=== PATIENT | female | born 1960 | race African-American/Black ===

== ENCOUNTER 2022-08-01 11:32 | Inpatient (IN) | payer BC, MEDICAID ==
[~2022-08-01] VITALS: Ht 144.8 cm; Wt 89.1 kg
[~2022-08-01 11:32] MED LIST: FERR325T50 PO
[2022-08-01 13:10] LABS: Eosinophils # (auto) 0 10 ^3/uL (0-0.8); Mean Corpuscular Hemoglobin 29.5 pg (28.0-32.0); Mean Corpuscular Hgb Conc. 30.9 g/dL (32.0-36.0); Monocytes # (auto) 0.4 10 ^3/uL (0-1.3)
[2022-08-01 13:11] LABS: Basophils # (auto) 0 10 ^3/uL (0-0.2); Basophils % (auto) 0.1 % (0.0-2.0); Hematocrit 51.7 % (36.0-46.0); Lymphocytes # (auto) 0.6 10 ^3/uL (0.4-5.4); Lymphocytes % (auto) 6.7 % (10.0-50.0); Mean Corpuscular Volume 95.5 fL (80.0-100.0); Monocytes % (auto) 5.4 % (0.0-12.0); Neutrophils # (auto) 7.3 10 ^3/uL (1.6-8.6); Neutrophils % (auto) 87.8 % (37.0-80.0); Nucleated Red Blood Cells % 0.1 %; Red Blood Cells 5.41 10^6/uL (4.0-5.20); Red Cell Distribution Width 13.6 % (11.8-14.3); White Blood Cell 8.3 10^3/uL (4.4-10.8)
[2022-08-01] MEDS ORDERED: SODIUM CHLORIDE 0.9% 1,000 ML IV ONE (13:15)
[2022-08-01] MEDS ORDERED: InsuLIN REG 1unit/0.01ml Soln (100units/ml) IV ONE (13:15)
[2022-08-01 13:20] LABS: Albumin 3.5 g/dL (3.4-5.0); Calcium 9.7 mg/dL (8.5-10.1)
[2022-08-01 13:29] LABS: BUN/Creatinine Ratio 18.6 (10.0-20.0); Bilirubin, Total 0.6 mg/dL (0.2-1.0); Potassium 5.4 mmol/L (3.5-5.1); Total Protein 8.3 g/dL (6.4-8.2)
[2022-08-01] MEDS: InsuLIN R (HUMAN) 100 UNITS in SODIUM CHL 0.9% 99 ML IV SCH ×2 (14:15→18:18)
[2022-08-01] MEDS ORDERED: DEXTROSE (50%) 50ML SYRG IV PRN (14:15)
[2022-08-01] MEDS ORDERED: INSULIN LANTUS (GLARGINE) 1 /0.01ml (100units/ml) SC ONE (14:15)
[2022-08-01] MEDS ORDERED: ACETAMINOPHEN 325 MG TAB PO PRN (14:45)
[2022-08-01] MEDS ORDERED: NITROGLYCERIN 0.4 MG SL TAB SL PRN (14:45)
[2022-08-01] MEDS ORDERED: MORPHINE SULFATE INJ 2 MG/ml SYRG IV PRN (14:45)
[2022-08-01] MEDS: SODIUM CHLORIDE 0.9% 1,000 ML IV SCH (14:45)
[2022-08-01] MEDS: ACCU-CHEK COMFORT CURVE STRIP VI SCH ×6 (15:00→22:30)
[2022-08-01 15:23] LABS: Cholesterol 211 mg/dL (< 200); Triglycerides 168 mg/dL (< 150)
[2022-08-01 15:25] LABS: HDL Cholesterol 59 mg/dL (40-59); LDL Cholesterol 122 mg/dL (< 100)
[2022-08-01 15:54] LABS: Urine Bacteria NONE SEEN /hpf (None Seen); Urine Blood Negative /uL (Negative); Urine Mucus FEW (None Seen); Urine Specific Gravity 1.024 (1.001-1.035); Urine WBC 1 /hpf (0 - 5)
[2022-08-01] MEDS: FERROUS SULFATE 325mg EC TAB PO SCH (22:00)
[2022-08-02 00:55] LABS: Calcium 9.3 mg/dL (8.5-10.1); Potassium 3.7 mmol/L (3.5-5.1)
[2022-08-02 00:58] LABS: BUN/Creatinine Ratio 22.1 (10.0-20.0); Bilirubin, Total 0.5 mg/dL (0.2-1.0); Total Protein 7.5 g/dL (6.4-8.2)
[2022-08-02] MEDS: ACCU-CHEK COMFORT CURVE STRIP VI SCH ×14 (01:30→22:08)
[2022-08-02] MEDS: SODIUM CHLORIDE 0.9% 1,000 ML IV SCH ×2 (04:23→19:47)
[2022-08-02 05:12] LABS: Basophils # (auto) 0 10 ^3/uL (0-0.2); Basophils % (auto) 0.1 % (0.0-2.0); Eosinophils # (auto) 0 10 ^3/uL (0-0.8); Eosinophils % (auto) 0.2 % (0.0-7.0); Hematocrit 44.1 % (36.0-46.0); Hemoglobin 14.6 g/dL (12.2-16.2); Lymphocytes # (auto) 0.7 10 ^3/uL (0.4-5.4); Lymphocytes % (auto) 8.4 % (10.0-50.0); Mean Corpuscular Hemoglobin 29.7 pg (28.0-32.0); Mean Corpuscular Volume 89.9 fL (80.0-100.0); Monocytes # (auto) 0.8 10 ^3/uL (0-1.3); Monocytes % (auto) 10.1 % (0.0-12.0); Neutrophils # (auto) 6.6 10 ^3/uL (1.6-8.6); Neutrophils % (auto) 81.2 % (37.0-80.0); Nucleated Red Blood Cells % 0.1 %; Red Blood Cells 4.91 10^6/uL (4.0-5.20); White Blood Cell 8.1 10^3/uL (4.4-10.8)
[2022-08-02 05:30] LABS: Chloride 118 mmol/L (98-107); Potassium 3.5 mmol/L (3.5-5.1); Sodium 145 mmol/L (136-145)
[2022-08-02 05:35] LABS: Alanine Aminotransferase 26 U/L (13-56); Albumin 2.7 g/dL (3.4-5.0); Anion Gap 7 (5-15); Aspartate Aminotransferase 9 U/L (15-37); BUN/Creatinine Ratio 23.8 (10.0-20.0); Blood Urea Nitrogen 25 mg/dL (7-18); Carbon Dioxide 20 mmol/L (21-32); GFR African American 68 mL/min; GFR Non-African American 56 mL/min; Glucose 274 mg/dL (74-106)
[2022-08-02 05:38] LABS: Alkaline Phosphatase 136 U/L (45-117); Bilirubin, Total 0.4 mg/dL (0.2-1.0); Total Protein 7.4 g/dL (6.4-8.2)
[2022-08-02] MEDS: FERROUS SULFATE 325mg EC TAB PO SCH ×2 (10:25→22:08)
[2022-08-02] MEDS: INSULIN LANTUS (GLARGINE) 1 /0.01ml (100units/ml) SC SCH (10:25)
[2022-08-02] MEDS: ENOXAPARIN SOD 40 MG/0.4 ML SYRINGE SC SCH (10:26)
[2022-08-02 12:59] LABS: Albumin 2.6 g/dL (3.4-5.0); Calcium 8.9 mg/dL (8.5-10.1); Potassium 3.6 mmol/L (3.5-5.1)
[2022-08-02 13:04] LABS: BUN/Creatinine Ratio 20.4 (10.0-20.0); Bilirubin, Total 0.5 mg/dL (0.2-1.0); Total Protein 7.1 g/dL (6.4-8.2)
[2022-08-02] MEDS: InsuLIN R (HUMAN) 100 UNITS in SODIUM CHL 0.9% 99 ML IV SCH (14:17)
[2022-08-02] MEDS ORDERED: DEXTROSE (50%) 50ML SYRG IV PRN (18:45)
[2022-08-02 18:58] LABS: Albumin 2.5 g/dL (3.4-5.0); Calcium 8.9 mg/dL (8.5-10.1); Potassium 4.4 mmol/L (3.5-5.1)
[2022-08-02 19:03] LABS: BUN/Creatinine Ratio 20.2 (10.0-20.0); Bilirubin, Total 0.6 mg/dL (0.2-1.0); Total Protein 6.8 g/dL (6.4-8.2)
[2022-08-02] MEDS: InsuLIN REG 1unit/0.01ml Soln (100units/ml) SC SCH (22:12)
[2022-08-03 00:49] LABS: Albumin 2.5 g/dL (3.4-5.0); BUN/Creatinine Ratio 23.7 (10.0-20.0); Calcium 8.6 mg/dL (8.5-10.1); Potassium 3.4 mmol/L (3.5-5.1)
[2022-08-03 00:53] LABS: Bilirubin, Total 0.5 mg/dL (0.2-1.0); Total Protein 6.7 g/dL (6.4-8.2)
[2022-08-03 05:00] VITALS: BP 131/72
[2022-08-03 05:56] LABS: Potassium 3.7 mmol/L (3.5-5.1)
[2022-08-03 06:07] LABS: BUN/Creatinine Ratio 25.8 (10.0-20.0); Calcium 8.9 mg/dL (8.5-10.1); Phosphorus 2.7 mg/dL (2.5-4.90); Uric Acid 8.4 mg/dL (2.6-6.0)
[2022-08-03] MEDS: ACCU-CHEK COMFORT CURVE STRIP VI SCH ×4 (06:31→21:42)
[2022-08-03] MEDS: InsuLIN REG 1unit/0.01ml Soln (100units/ml) SC SCH ×4 (06:32→21:41)
[2022-08-03] MEDS: SODIUM CHLORIDE 0.9% 1,000 ML IV SCH ×2 (06:35→20:05)
[2022-08-03 08:00] VITALS: BP 138/82
[2022-08-03 08:44] VITALS: BP 138/82
[2022-08-03] MEDS: INSULIN LANTUS (GLARGINE) 1 /0.01ml (100units/ml) SC SCH (08:50)
[2022-08-03] MEDS: FERROUS SULFATE 325mg EC TAB PO SCH ×2 (08:53→21:37)
[2022-08-03] MEDS: ENOXAPARIN SOD 40 MG/0.4 ML SYRINGE SC SCH (08:53)
[2022-08-03 11:53] LABS: Urine Bacteria FEW /hpf (None Seen); Urine Blood Negative /uL (Negative); Urine Specific Gravity 1.022 (1.001-1.035); Urine WBC 7 /hpf (0 - 5)
[2022-08-03 12:28] LABS: Protein, Urine 32.6 mg/dL (0.0-11.9)
[2022-08-03 13:00] VITALS: BP 112/71
[2022-08-03 13:29] LABS: Albumin 2.5 g/dL (3.4-5.0); Calcium 8.9 mg/dL (8.5-10.1); Potassium 3.4 mmol/L (3.5-5.1)
[2022-08-03 13:34] LABS: BUN/Creatinine Ratio 19.2 (10.0-20.0); Bilirubin, Total 0.5 mg/dL (0.2-1.0); Total Protein 6.6 g/dL (6.4-8.2)
[2022-08-03 17:01] VITALS: BP 110/55
[2022-08-03] MEDS: metFORMIN HYDROCHLORIDE 850 MG TAB PO SCH (17:41)
[2022-08-03 18:38] LABS: Albumin 2.3 g/dL (3.4-5.0); Calcium 8.7 mg/dL (8.5-10.1); Potassium 3.3 mmol/L (3.5-5.1)
[2022-08-03 18:44] LABS: BUN/Creatinine Ratio 17.9 (10.0-20.0); Bilirubin, Total 0.4 mg/dL (0.2-1.0); Total Protein 6.4 g/dL (6.4-8.2)
[2022-08-03 22:00] VITALS: BP 117/71
[2022-08-04 05:00] VITALS: BP 148/58
[2022-08-04] MEDS: InsuLIN REG 1unit/0.01ml Soln (100units/ml) SC SCH ×4 (06:20→21:32)
[2022-08-04] MEDS: ACCU-CHEK COMFORT CURVE STRIP VI SCH ×4 (06:20→21:24)
[2022-08-04] MEDS: GLIMEPIRIDE 2 MG TAB PO SCH (06:53)
[2022-08-04 09:00] VITALS: BP 110/58
[2022-08-04 09:04] LABS: Basophils # (auto) 0 10 ^3/uL (0-0.2); Basophils % (auto) 0.2 % (0.0-2.0); Eosinophils # (auto) 0 10 ^3/uL (0-0.8); Eosinophils % (auto) 1.1 % (0.0-7.0); Hemoglobin 14.5 g/dL (12.2-16.2); Lymphocytes % (auto) 24.2 % (10.0-50.0); Mean Corpuscular Hemoglobin 29.3 pg (28.0-32.0); Mean Corpuscular Hgb Conc. 32.3 g/dL (32.0-36.0); Mean Corpuscular Volume 90.6 fL (80.0-100.0); Monocytes # (auto) 0.5 10 ^3/uL (0-1.3); Monocytes % (auto) 11.4 % (0.0-12.0); Neutrophils # (auto) 2.6 10 ^3/uL (1.6-8.6); Neutrophils % (auto) 63.1 % (37.0-80.0); Nucleated Red Blood Cells % 0.3 %; Red Blood Cells 4.97 10^6/uL (4.0-5.20); White Blood Cell 4.1 10^3/uL (4.4-10.8)
[2022-08-04 09:18] LABS: Calcium 8.8 mg/dL (8.5-10.1); Potassium 3.2 mmol/L (3.5-5.1)
[2022-08-04 09:20] LABS: BUN/Creatinine Ratio 16.7 (10.0-20.0)
[2022-08-04] MEDS: metFORMIN HYDROCHLORIDE 850 MG TAB PO SCH ×2 (09:21→18:22)
[2022-08-04] MEDS: FERROUS SULFATE 325mg EC TAB PO SCH ×2 (09:21→21:31)
[2022-08-04] MEDS: INSULIN LANTUS (GLARGINE) 1 /0.01ml (100units/ml) SC SCH (09:22)
[2022-08-04] MEDS: SODIUM CHLORIDE 0.9% 1,000 ML IV SCH ×2 (09:22→22:45)
[2022-08-04] MEDS: ENOXAPARIN SOD 40 MG/0.4 ML SYRINGE SC SCH (09:22)
[2022-08-04 12:44] VITALS: BP 129/55
[2022-08-04 17:00] VITALS: BP 113/48
[2022-08-04 21:57] VITALS: BP 129/69
[2022-08-05 04:33] VITALS: BP 115/80
[2022-08-05] MEDS: GLIMEPIRIDE 2 MG TAB PO SCH (06:32)
[2022-08-05] MEDS: ACCU-CHEK COMFORT CURVE STRIP VI SCH ×2 (06:32→11:30)
[2022-08-05] MEDS: InsuLIN REG 1unit/0.01ml Soln (100units/ml) SC SCH ×2 (06:33→12:30)
[2022-08-05] MEDS: SODIUM CHLORIDE 0.9% 1,000 ML IV SCH (06:33)
[2022-08-05] MEDS: metFORMIN HYDROCHLORIDE 850 MG TAB PO SCH (08:00)
[2022-08-05 08:30] VITALS: BP 127/76
[2022-08-05] MEDS: FERROUS SULFATE 325mg EC TAB PO SCH (10:33)
[2022-08-05] MEDS: ENOXAPARIN SOD 40 MG/0.4 ML SYRINGE SC SCH (10:33)
[2022-08-05] MEDS ORDERED: GLIM4TAB PO (11:17)
[2022-08-05] MEDS ORDERED: BLOO-200 XX (11:17)
[2022-08-05] MEDS ORDERED: METF-371 PO (11:17)
[2022-08-05 12:30] VITALS: BP 153/72
[2022-08-05] MEDS: INSULIN LANTUS (GLARGINE) 1 /0.01ml (100units/ml) SC SCH (12:30)
== END 2022-08-05 17:00 | disposition home or self-care (01) | DRG 637 ==
LOC: ER 11:32 → TELE 14:40 → TELE-CENTR 08-02 21:20
PROVIDERS: ADMIT Nurse Practitioner Family; ATTEND Internal Medicine
PROC: 05HC33Z Insertion of Infusion Device into Left Basilic Vein, Percutaneous Approach (ICD-10-PCS; principal; 2022-08-02)
PROC: B54NZZA Ultrasonography of Left Upper Extremity Veins, Guidance (ICD-10-PCS; 2022-08-02)
DX: E11.10 Type 2 diabetes mellitus with ketoacidosis without coma (principal); N17.0 Acute kidney failure with tubular necrosis; Z68.41 Body mass index [BMI] 40.0-44.9, adult; E87.5 Hyperkalemia; E86.0 Dehydration; E66.01 Morbid (severe) obesity due to excess calories; E11.22 Type 2 diabetes mellitus with diabetic chronic kidney disease; N18.2 Chronic kidney disease, stage 2 (mild); Z79.4 Long term (current) use of insulin; Z82.62 Family history of osteoporosis; Z82.49 Family history of ischemic heart disease and other diseases of the circulatory system; Z83.3 Family history of diabetes mellitus
CPT/HCPCS: 36415; 36600; 74176; 76775; 80048; 80053; 80061; 81001; 82010; 82306; 82570; 82805; 82962; 83036; 84100; 84132; 84156; 84300; 84443; 84484; 84550; 85025; 93005; G0378; J1815

== ENCOUNTER 2024-03-06 11:43 | Inpatient (IN) | payer OTHER ==
[~2024-03-06] VITALS: Ht 149.9 cm; Wt 88.9 kg
[~2024-03-06 11:43] MED LIST changes: +BLOO-200 XX; +GLIM4TAB PO; +METF-371 PO
--- NOTE | 2024-03-06 12:10 | ED.PDOC ---
HPI (NEURO) HPI Comments 63y F who presents to the ED for chief complaint of generalized weakness. Pt states she has been having generalized weakness for the past 2-3 days with associated fever and chills. Pt states she is diabetic type 2 and states she has been taking her metformin. Pt in the ED, has noted accu check of 522 in the ED. Pt otherwise is [id number] and able to answer all questions. Pt otherwise denies any recent sick contacts or changes to diet. Pt otherwise denies nasuea, vomiting, diarrhea, chest pain or shortness of breath. Pt otherwise denies any other symptoms at this time. Chief Complaint: generalized weakness Time Seen by MD: 12:08 Primary Care Provider: UNKNOWN Reviewed Notes: Medications, Allergies Information Source: Patient Mode of Arrival: Wheelchair Brought in by: self Severity: Moderate Dizziness/Weakness Severity: Does not affect activitie Headache Severity: None Timing: Hours, Days Duration: Since onset Prehospital treatment: None Onset: At rest Circumstances: Spontaneous Symptoms: Weakness History of: DM Modifying factors: Nothing Associated Signs and Symptoms: None Past Medical History PAST MEDICAL HISTORY: DM Surgical History: Denies all surgeries SAFETY ENGINEER History: Denies all SAFETY ENGINEER Hx Family History Family History: Family hx of DM Social History Smoker: Non-Smoker Alcohol: Denies ETOH Use Drugs: Denies Drug Use Lives In: Home Constitutional: reports: chills, fever, weakness; denies: diaphoresis, fatigue, malaise, sweats, others EENTM: denies: blurred vision, double vision, ear bleeding, ear discharge, ear drainage, ear pain, ear ringing, eye pain, eye redness, hearing loss, mouth pain, mouth swelling, nasal discharge, nose bleeding, nose congestion, nose pain, photophobia, tearing, throat pain, throat swelling, voice changes, others Respiratory: denies: cough, hemoptysis, orthopnea, SOB at rest, shortness of breath, SOB with excertion, stridor, wheezing, others Cardiovascular: denies: chest pain, dizzy spells, diaphoresis, Dyspnea on exertion, edema, irregular heart beat, left arm pain, lightheadedness, palpitations, PND, syncope, others Gastrointestinal: denies: abdomen distended, abdominal pain, blood streaked bowels, constipated, diarrhea, dysphagia, difficulty swallowing, hematemesis, melena, nausea, poor appetite, poor fluid intake, rectal bleeding, rectal pain, vomiting, others Genitourinary: denies: abnormal vagina bleeding, burning, dyspareunia, dysuria, flank pain, frequency, hematuria, incontinence, pain, , vagina discharge, urgency, others Neurological: denies: dizziness, fainting, headache, left sided numbness, left sided weakness, numbness, paresthesia, pre-existing deficit, right sided numbness, right sided weakness, seizure, speech problems, tingling, tremors, weakness, others Musculoskeletal: denies: back pain, gout, joint pain, joint swelling, muscle pain, muscle stiffness, neck pain, others Integumetry: denies: bruises, change in color, change in hair/nails, dryness, laceration, lesions, lumps, rash, wounds, others Allergic/Immunocompromised: denies: Difficulty Healing, Frequent Infections, Hives, Itching, others Hematologic/Lymphatic: denies: anemia, blood clots, easy bleeding, easy bruising, swollen glands, others Endocrine: denies: excessive hunger, excessive sweating, excessive thirst, excessive urination, flushing, intolerance to cold, intolerance to heat, unexplained weight gain, unexplained weight loss, others Psychiatric: denies: anxiety, bipolar disorder, depression, hopeless, panic disorder, schizophrenia, sleepless, suicidal, others All Other Systems: Reviewed and Negative Physical Exam General Appearance: Moderate Distress HEENT: Normal ENT Inspection, Pharynx Normal, TMs Normal Neck: Full Range of Motion, Non-Tender, Normal, Normal Inspection Respiratory: Chest Non-Tender, Lungs Clear, No Accessory Muscle Use, No Respiratory Distress, Normal Breath Sounds Cardiovascular: No Edema, No JVD, No Murmur, No Gallop, Normal Peripheral Pulses, Regular Rate/Rhythm Breast Exam: Deferred Gastrointestinal: No Organomegaly, Non Tender, No Pulsatile Mass, Normal Bowel Sounds, Soft Genitalia: Deferred Pelvic: Deferred Rectal: Deferred Extremities: No calf tenderness, Normal capillary refill, Normal inspection, Normal range of motion, Non-tender, No pedal edema Musculoskeletal : Apperance: Normal Neurologic: Alert, 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 Was a procedure done?: No Differential Diagnosis (SZ) General Weakness: Dehydration, Electrolyte imbalance, Encephalopathy, Other (DKA, uncontrolled DM) X-Ray, Labs, Meds, VS Vital Signs Date Time Temp Pulse Resp B/P (MAP) Pulse Ox O2 Delivery O2 Flow Rate FiO2 03/06/24 15:33 70 18 106/51 (69) 93 03/06/24 13:32 98.3 85 18 126/80 (95) 98 98.3 03/06/24 12:00 98.3 98 18 145/78 (100) 96 Lab Test 03/06/24 16:12 03/06/24 12:51 03/06/24 12:04 03/06/24 12:02 Range/Units POC Glucose 436 *H 573 *H 522 *H 70-106 mg/dl White Blood Count 5.3 4.4-10.8 10^3/uL Red Blood Count 5.43 H 4.0-5.20 10^6/uL Hemoglobin 16.2 12.2-16.2 g/dL Hematocrit 49.4 H 36.0-46.0 % Mean Corpuscular Volume 91.0 80.0-100.0 fL Mean Corpuscular Hemoglobin 29.8 28.0-32.0 pg Mean Corpuscular Hemoglobin Concent 32.8 32.0-36.0 g/dL Red Cell Distribution Width 12.5 11.8-14.3 % Platelet Count 190 140-450 10^3/uL Mean Platelet Volume 10.7 6.9-10.8 fL Neutrophils (%) (Auto) 79.9 37.0-80.0 % Lymphocytes (%) (Auto) 15.5 10.0-50.0 % Monocytes (%) (Auto) 3.2 0.0-12.0 % Eosinophils (%) (Auto) 1.1 0.0-7.0 % Basophils (%) (Auto) 0.3 0.0-2.0 % Neutrophils # (Auto) 4.2 1.6-8.6 10 ^3/uL Lymphocytes # (Auto) 0.8 0.4-5.4 10 ^3/uL Monocytes # (Auto) 0.2 0-1.3 10 ^3/uL Eosinophils # (Auto) 0.1 0-0.8 10 ^3/uL Basophils # (Auto) 0 0-0.2 10 ^3/uL Nucleated Red Blood Cells 0.1 % Sodium Level 142 136-145 mmol/L Potassium Level 4.0 3.5-5.1 mmol/L Chloride Level 106 98-107 mmol/L Carbon Dioxide Level 26 20-31 mmol/L Anion Gap 10 5-15 Blood Urea Nitrogen 13 9-23 mg/dL Creatinine 1.11 H 0.550-1.02 mg/dL Glomerular Filtration Rate Calc 55 >90 mL/min BUN/Creatinine Ratio 11.7 10.0-20.0 Serum Glucose 494 *H 74-106 mg/dL Calcium Level 10.1 8.7-10.4 mg/dL Current Medications Medications (Trade) Dose Ordered Sig/Tyrone Route Start Time Stop Time Status Last Admin Sodium Chloride 1,000 ml @ 1,000 mls/hr Q1H ONCE IV 03/06/24 12:15 03/06/24 13:14 DC 03/06/24 12:42 Insulin Human Regular (InsuLIN R) 5 units ONCE ONCE IV 03/06/24 12:15 03/06/24 12:16 DC 03/06/24 12:43 Acetaminophen/ Hydrocodone Bitart ([place] 5/325MG Tab) 1 tab ONCE ONCE PO 03/06/24 13:30 03/06/24 13:31 DC 03/06/24 13:48 IV Hep-Lock was established The patient was given a bolus of normal saline The patient was given insulin 5 units IV push The patient's glucose is 494 The CBC is within normal limits The chemistry panel otherwise within normal limits The patient continues to be hyperglycemic and having some generalized weakness We contacted [facility] and we did get authorization for admission. The authorization #[id number] The authorization is given by Dr. Kruger Images Reviewed?: Images reviewed and evaluated by me Time of 1ST Reevaluation: 12:40 Reevaluation 1ST: Unchanged Patient Education/Counseling: Diagnosis, Treatment, Prognosis Family Education/Counseling: No Family Present Departure 1 Departure Time of Disposition: 17:28 Impression: Primary Impression: Hyperglycemia due to diabetes mellitus Additional Impression: Generalized weakness Disposition: ADMITTED INPATIENT Admit to: [facility] Condition: Fair Critical Care Note Critical Care Time?: No Stability Stability form required: No Heart Score Heart Score: Heart Score Response (Comments) Value History N/A 0 EKG N/A 0 Age N/A 0 Risk Factors N/A 0 Troponin N/A 0 Total 0 I personally scribed for NANY ESTEVEZ MD ([email or web address]) on 03/06/24 at 12:10. Electronically submitted by Amira Gilbert ([email or web address]). NANY ESTEVEZ MD Mar 06, 2024 12:10
[2024-03-06] MEDS: SODIUM CHLORIDE 0.9% 1,000 ML IV ONE (12:42)
[2024-03-06] MEDS: InsuLIN REG 1unit/0.01ml Soln (100units/ml) IV ONE (12:43)
[2024-03-06 13:33] LABS: Basophils # (auto) 0 10 ^3/uL (0-0.2); Basophils % (auto) 0.3 % (0.0-2.0); Eosinophils # (auto) 0.1 10 ^3/uL (0-0.8); Eosinophils % (auto) 1.1 % (0.0-7.0); Hematocrit 49.4 % (36.0-46.0); Hemoglobin 16.2 g/dL (12.2-16.2); Lymphocytes # (auto) 0.8 10 ^3/uL (0.4-5.4); Lymphocytes % (auto) 15.5 % (10.0-50.0); Mean Corpuscular Hemoglobin 29.8 pg (28.0-32.0); Mean Corpuscular Hgb Conc. 32.8 g/dL (32.0-36.0); Monocytes # (auto) 0.2 10 ^3/uL (0-1.3); Monocytes % (auto) 3.2 % (0.0-12.0); Neutrophils # (auto) 4.2 10 ^3/uL (1.6-8.6); Neutrophils % (auto) 79.9 % (37.0-80.0); Nucleated Red Blood Cells % 0.1 %; Platelet Count (auto) 190 10^3/uL (140-450); Red Blood Cells 5.43 10^6/uL (4.0-5.20); Red Cell Distribution Width 12.5 % (11.8-14.3); White Blood Cell 5.3 10^3/uL (4.4-10.8)
[2024-03-06 13:47] LABS: Chloride 106 mmol/L (98-107); Sodium 142 mmol/L (136-145)
[2024-03-06 13:48] LABS: Anion Gap 10 (5-15); Carbon Dioxide 26 mmol/L (20-31)
[2024-03-06] MEDS: HYDROcodone-ACET 5/325MG TAB PO ONE ×2 (13:48→19:28)
[2024-03-06 13:49] LABS: Calcium 10.1 mg/dL (8.7-10.4)
[2024-03-06 13:53] LABS: BUN/Creatinine Ratio 11.7 (10.0-20.0); Blood Urea Nitrogen 13 mg/dL (9-23)
[2024-03-06 13:58] LABS: Glucose 494 mg/dL (74-106)
[2024-03-06] MEDS: HYDROcodone-ACET 5/325MG TAB ONE (14:14)
[2024-03-06 17:31] LABS: Urine Bacteria None Seen /hpf (None Seen)
[2024-03-06 17:54] LABS: Urine Blood Negative /uL (Negative); Urine Clarity Clear (Clear); Urine Color Light-Yellow (Yellow); Urine Protein, UAD Negative (Negative); Urine Specific Gravity 1.032 (1.001-1.035); Urine Urobilinogen Normal (Negative); Urine WBC 1 /hpf (0 - 5)
[2024-03-06] MEDS: ONDANSETRON HCL 4 MG/2 ML VIAL IV ONE (18:00)
[2024-03-06] MEDS ORDERED: MORPHINE SULFATE 4 MG/ML SYR/VIAL IV ONE (18:00)
[2024-03-06] MEDS ORDERED: ONDANSETRON HCL 4 MG/2 ML VIAL IV PRN (21:30)
[2024-03-06] MEDS ORDERED: DEXTROSE (50%) 50ML SYRG IV PRN (21:30)
[2024-03-06] MEDS ORDERED: TEMAZEPAM 15 MG CAP PO PRN (21:30)
[2024-03-07] MEDS: ACCU-CHEK COMFORT CURVE STRIP VI SCH
[2024-03-07] MEDS: InsuLIN REG 1unit/0.01ml Soln (100units/ml) SC SCH (00:38)
[2024-03-07] MEDS: ACETAMINOPHEN 325 MG TAB PO PRN (03:02)
--- NOTE | 2024-03-07 03:52 | DVHHP2 ---
History of Present Illness Reason for Visit: Generalized weakness History of Present Illness 63-year-old female presents for evaluation of generalized weakness. Patient reports a two day history of generalized weakness. Yesterday patient noted her blood sugar being elevated greater than 400. She reports being compliant with her diabetic medication. Reports occasional chills. No abdominal pain, nausea or vomiting. No shortness a breath. No chest pain. No other acute complaints reported Past Medical History Diabetes mellitus Past Surgical History Denies Family History Noncontributory Smoke: No ALCOHOL: none Drugs: None Lives: with Family Review of Systems Review of Systems Review of systems are currently negative otherwise addressed in HPI. Allergies: Coded Allergies: NO KNOWN ALLERGIES (Unverified , 05/16/15) Medications Current Medications Medications Dose Ordered Sig/Tyrone Route Start Time Stop Time Status Last Admin Dose Admin Diagnostic Test (Pha) 1 strip IQ4HR 03/07/24 00:00 03/07/24 00:00 1 STRIP Insulin Human Regular IQ4HR SC 03/07/24 00:00 03/07/24 00:38 10 UNITS Dextrose 50 ml UD PRN IV 03/06/24 21:30 Temazepam 15 mg QHSP PRN PO 03/06/24 21:30 Ondansetron HCl 4 mg Q4HP PRN IV 03/06/24 21:30 Acetaminophen 650 mg Q6HP PRN PO 03/06/24 21:30 03/07/24 03:02 650 MG Exam Vital Signs Vital Signs Date Time Temp Pulse Resp B/P (MAP) Pulse Ox O2 Delivery O2 Flow Rate FiO2 03/07/24 02:18 98.2 62 16 135/66 (89) 95 98.2 Exam Gen: 63-year-old female in no apparent distress Skin: Warm, dry, normal color and texture, no rash. HEENT: Normocephalic atraumatic, mucous membranes moist and pink. Neck: Cervical and supraclavicular nodes normal without enlargement, trachea is midline, thyroid gland is normal without masses. Pulmonary: Clear to auscultation and percussion bilaterally. Cardiac: Regular rate and rhythm. No murmur Abdomen: Soft, nontender, nondistended, bowel sounds present all 4 quadrants, no guarding, no rigidity, no organomegaly. Extremities: No cyanosis, clubbing, no edema Neuro: Cranial nerves II through XII grossly intact, normal affect and speech, no focal motor deficits. Labs/Xrays Labs Test 03/07/24 00:31 03/06/24 12:51 03/06/24 12:03 Range/Units POC Glucose 448 *H 70-106 mg/dl White Blood Count 5.3 4.4-10.8 10^3/uL Red Blood Count 5.43 H 4.0-5.20 10^6/uL Hemoglobin 16.2 12.2-16.2 g/dL Hematocrit 49.4 H 36.0-46.0 % Mean Corpuscular Volume 91.0 80.0-100.0 fL Mean Corpuscular Hemoglobin 29.8 28.0-32.0 pg Mean Corpuscular Hemoglobin Concent 32.8 32.0-36.0 g/dL Red Cell Distribution Width 12.5 11.8-14.3 % Platelet Count 190 140-450 10^3/uL Mean Platelet Volume 10.7 6.9-10.8 fL Neutrophils (%) (Auto) 79.9 37.0-80.0 % Lymphocytes (%) (Auto) 15.5 10.0-50.0 % Monocytes (%) (Auto) 3.2 0.0-12.0 % Eosinophils (%) (Auto) 1.1 0.0-7.0 % Basophils (%) (Auto) 0.3 0.0-2.0 % Neutrophils # (Auto) 4.2 1.6-8.6 10 ^3/uL Lymphocytes # (Auto) 0.8 0.4-5.4 10 ^3/uL Monocytes # (Auto) 0.2 0-1.3 10 ^3/uL Eosinophils # (Auto) 0.1 0-0.8 10 ^3/uL Basophils # (Auto) 0 0-0.2 10 ^3/uL Nucleated Red Blood Cells 0.1 % Sodium Level 142 136-145 mmol/L Potassium Level 4.0 3.5-5.1 mmol/L Chloride Level 106 98-107 mmol/L Carbon Dioxide Level 26 20-31 mmol/L Anion Gap 10 5-15 Blood Urea Nitrogen 13 9-23 mg/dL Creatinine 1.11 H 0.550-1.02 mg/dL Glomerular Filtration Rate Calc 55 >90 mL/min BUN/Creatinine Ratio 11.7 10.0-20.0 Serum Glucose 494 *H 74-106 mg/dL Calcium Level 10.1 8.7-10.4 mg/dL Urine Color Light-yellow Yellow Urine Clarity Clear Clear Urine pH 5.0 5.0-9.0 Urine Specific [place] 1.032 1.001-1.035 Urine Protein Negative Negative Urine Ketones 1+ H Negative Urine Blood Negative Negative /uL Urine Nitrite Negative Negative Urine Bilirubin Negative Negative Urine Urobilinogen Normal Negative mg/dL Urine Leukocyte Esterase Negative Negative /uL Urine RBC 4 0 - 4 /hpf Urine WBC 1 0 - 5 /hpf Urine Squamous Epithelial Cells Few <5 /hpf Urine Bacteria None seen None Seen /hpf Urine Glucose 4+ H Normal mg/dL Assessment/Plan Assessment/Plan Assessment Uncontrolled diabetes mellitus Morbid obesity Plan Admit the patient to [facility] to the hospitalist Q.4 hour Accu-Cheks with moderate insulin coverage Continue treatment per orders. Plan discussed with: Patient My Orders Orders - GENIA MIRANDA Procedure Category Date Status Time Consistent DIET 03/07/24 Transmitted Carb(Ccho)Diabetes Breakfast Basic Metabolic Panel LAB 03/07/24 Logged 04:00 Glucose Blood PHA 03/07/24 In Process (Accu-Chek Comfort 00:00 Insulin R (Human) PHA 03/07/24 In Process (Insulin R) 00:00 Dextrose 50% Syringe PHA 03/06/24 In Process 21:30 Admit ADMIT 03/06/24 Transmitted 21:25 Temazepam (Restoril) PHA 03/06/24 In Process 21:30 Ondansetron Hcl PHA 03/06/24 In Process (Zofran) 21:30 Condition: Stable DEDE 03/06/24 In Process 21:25 Acetaminophen Tablet PHA 03/06/24 In Process (Tylenol Tablet) 21:30 Bedrest With Bathroom DEDE 03/06/24 In Process Privileg 21:25 Date of Service: Mar 06, 2024 Billing Provider: GENIA MIRANDA Common Visit Codes: [id number] INP/OBS CARE (MOD) GENIA MIRANDA Mar 07, 2024 03:52
[2024-03-07 04:50] LABS: Chloride 106 mmol/L (98-107); Potassium 4.5 mmol/L (3.5-5.1); Sodium 143 mmol/L (136-145)
[2024-03-07 04:51] LABS: Anion Gap 10 (5-15); Calcium 9.8 mg/dL (8.7-10.4); Carbon Dioxide 27 mmol/L (20-31)
[2024-03-07 04:57] LABS: BUN/Creatinine Ratio 13.3 (10.0-20.0); Blood Urea Nitrogen 12 mg/dL (9-23); Glucose 383 mg/dL (74-106)
--- NOTE | 2024-03-07 15:01 | ECG ---
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
--- NOTE | 2024-03-07 17:50 | DVHPN2 ---
Subjective Seen and examined at bedside, monitor blood sugars adjust meds. Await A1c Changes from previous H/P or p: No Changes Objective Vitals Vital Signs Date Time Temp Pulse Resp B/P (MAP) Pulse Ox O2 Delivery O2 Flow Rate FiO2 03/07/24 17:41 98.5 88 16 122/60 (80) 99 98.5 03/07/24 07:59 Room Air* 0 21 General Appearance: Alert, Oriented X3, Cooperative, No acute distress HEENT: Atraumatic, PERRLA, EOMI Lungs: Clear to auscultation Cardiovascular: Regular rate, Normal S1, Normal S2 Abdomen: Normal bowel sounds, Soft Rectal: Deferred Psych/Mental Status: Mental status NL Medications Current Medications Medications Dose Ordered Sig/Tyrone Route Start Time Stop Time Status Last Admin Dose Admin Diagnostic Test (Pha) 1 strip IQ4HR 03/07/24 00:00 03/07/24 16:07 1 STRIP Insulin Human Regular IQ4HR SC 03/07/24 00:00 03/07/24 16:10 10 UNITS Dextrose 50 ml UD PRN IV 03/06/24 21:30 Temazepam 15 mg QHSP PRN PO 03/06/24 21:30 Ondansetron HCl 4 mg Q4HP PRN IV 03/06/24 21:30 Acetaminophen 650 mg Q6HP PRN PO 03/06/24 21:30 03/07/24 07:57 650 MG Laboratory Results Laboratory Tests 03/06/24 12:51 03/07/24 03:45 Chemistry Test 03/07/24 03:45 Calcium Level 9.8 mg/dL (8.7-10.4) Urinalysis Test 03/06/24 12:03 Urine Color Light-yellow (Yellow) Urine Clarity Clear (Clear) Urine pH 5.0 (5.0-9.0) Urine Specific [place] 1.032 (1.001-1.035) Urine Protein Negative (Negative) Urine Ketones 1+ (Negative) H Urine Blood Negative /uL (Negative) Urine Nitrite Negative (Negative) Urine Bilirubin Negative (Negative) Urine Urobilinogen Normal mg/dL (Negative) Urine Leukocyte Esterase Negative /uL (Negative) Urine RBC 4 /hpf (0 - 4) Urine WBC 1 /hpf (0 - 5) Urine Squamous Epithelial Cells Few /hpf (<5) Urine Bacteria None seen /hpf (None Seen) Urine Glucose 4+ mg/dL (Normal) H Assessment/Plan Assessment/Plan # Acute Cystitis - Rocephin # Uncontrolled DM2 - 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 # Morbidly Obese - 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 Core 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 Operator on 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 # Goals of care discussion >19 mins FULL CODE Plan discussed with: Patient My Orders Orders - ROM ALEXANDRE MD Procedure Category Date Status Time Hemoglobin A1c LAB 03/07/24 Verified 17:46 Vitamin D, 25-Hydroxy LAB 03/07/24 Verified 17:46 Comprehensive LAB 03/08/24 Verified Metabolic Panel 04:00 Thyroid Stimulating LAB 03/08/24 Verified Hormone 04:00 Complete Blood Count LAB 03/08/24 Verified 04:00 Phosphorus LAB 03/08/24 Verified 04:00 Magnesium LAB 03/08/24 Verified 04:00 Lipid Panel LAB 03/08/24 Verified 04:00 Insulin Lantus PHA 03/07/24 Verified (Glargine) (Lantus) 22:00 NS PHA 03/07/24 Verified 18:00 Ceftriaxone Ivpb PHA 03/07/24 Verified Rocephin 18:00 Ceftriaxone Ivpb PHA 03/08/24 Verified Rocephin 09:00 Date of Service: Mar 07, 2024 Billing Provider: ROM ALEXANDRE MD Common Visit Codes: [id number] INP/OBS CARE(HIGH) Secondary Visit Codes: [id number] CARE PLAN 30 MINUTES ROM ALEXANDRE MD Mar 07, 2024 17:50
[2024-03-07] MEDS: SODIUM CHLORIDE 0.9% 1,000 ML IV SCH (18:00)
[2024-03-07] MEDS: cefTRIAXone 1GM/50ML D5W 50 ML IV ONE (18:00)
[2024-03-07 18:03] VITALS: BP 129/92; PULSE 101; RESP 18; TEMP 98.4; O2SAT 90; O2SAT 95
[2024-03-07 20:00] VITALS: O2SAT 96
[2024-03-07 21:00] VITALS: BP 129/78; PULSE 102; RESP 17; TEMP 98.2; O2SAT 97
[2024-03-07] MEDS: INSULIN LANTUS (GLARGINE) 1 /0.01ml (100units/ml) SC SCH (21:30)
[2024-03-08 01:00] VITALS: BP 147/66; PULSE 68; RESP 18; TEMP 98.1; O2SAT 97
[2024-03-08 05:00] VITALS: BP 139/76; PULSE 83; RESP 18; TEMP 98.2; O2SAT 95
[2024-03-08 07:08] LABS: Basophils # (auto) 0 10 ^3/uL (0-0.2); Basophils % (auto) 0.3 % (0.0-2.0); Eosinophils # (auto) 0.1 10 ^3/uL (0-0.8); Eosinophils % (auto) 1.6 % (0.0-7.0); Hematocrit 44.2 % (36.0-46.0); Hemoglobin 14.9 g/dL (12.2-16.2); Lymphocytes # (auto) 1.1 10 ^3/uL (0.4-5.4); Lymphocytes % (auto) 22.7 % (10.0-50.0); Mean Corpuscular Hemoglobin 30.5 pg (28.0-32.0); Mean Corpuscular Hgb Conc. 33.8 g/dL (32.0-36.0); Mean Corpuscular Volume 90.2 fL (80.0-100.0); Monocytes # (auto) 0.4 10 ^3/uL (0-1.3); Monocytes % (auto) 8.2 % (0.0-12.0); Neutrophils # (auto) 3.4 10 ^3/uL (1.6-8.6); Neutrophils % (auto) 67.2 % (37.0-80.0); Nucleated Red Blood Cells % 0.1 %; Platelet Count (auto) 169 10^3/uL (140-450); Red Cell Distribution Width 12.8 % (11.8-14.3)
[2024-03-08 07:18] LABS: Alanine Aminotransferase 23 U/L (7-40); Albumin 3.7 g/dL (3.2-4.8); Alkaline Phosphatase 119 U/L (46-116); Anion Gap 8 (5-15); Aspartate Aminotransferase 14 U/L (13-40); BUN/Creatinine Ratio 17.9 (10.0-20.0); Bilirubin, Total 0.7 mg/dL (0.2-1.0); Blood Urea Nitrogen 14 mg/dL (9-23); Calcium 9.5 mg/dL (8.7-10.4); Carbon Dioxide 25 mmol/L (20-31); Chloride 108 mmol/L (98-107); Cholesterol 199 mg/dL (< 200); Glucose 286 mg/dL (74-106); HDL Cholesterol 55 mg/dL (40-59); LDL Cholesterol 121 mg/dL (< 100); Magnesium 2.1 mg/dL (1.6-2.6); Phosphorus 3.6 mg/dL (2.4-5.1); Potassium 3.7 mmol/L (3.5-5.1); Sodium 141 mmol/L (136-145); Total Protein 6.8 g/dL (5.7-8.2); Triglycerides 157 mg/dL (< 150)
[2024-03-08] MEDS: cefTRIAXone 1GM/50ML D5W 50 ML IV SCH (08:13)
[2024-03-08] MEDS ORDERED: ATOR-507 PO ×2 (08:57→08:58)
[2024-03-08] MEDS ORDERED: METF-371 PO ×2 (08:57→08:58)
[2024-03-08] MEDS ORDERED: EMPA1TAB3 PO ×2 (08:57→08:58)
[2024-03-08] MEDS ORDERED: CEPH250C PO (08:59)
[2024-03-08 09:00] VITALS: BP 147/90; PULSE 92; RESP 18; TEMP 98.2; O2SAT 94
--- NOTE | 2024-03-08 09:03 | DVHDS2 ---
Discharge Summary Date of Admission Mar 06, 2024 at 21:25 Date of Discharge: Mar 08, 2024 Admitting Diagnosis Acute Cystitis Labs/Diagnostic Data: Laboratory Results Test 03/08/24 08:11 03/08/24 05:54 03/07/24 03:45 03/06/24 12:03 POC Glucose 245 mg/dl (70-106) White Blood Count 5.0 10^3/uL (4.4-10.8) Red Blood Count 4.90 10^6/uL (4.0-5.20) Hemoglobin 14.9 g/dL (12.2-16.2) Hematocrit 44.2 % (36.0-46.0) Mean Corpuscular Volume 90.2 fL (80.0-100.0) Mean Corpuscular Hemoglobin 30.5 pg (28.0-32.0) Mean Corpuscular Hemoglobin Concent 33.8 g/dL (32.0-36.0) Red Cell Distribution Width 12.8 % (11.8-14.3) Platelet Count 169 10^3/uL (140-450) Mean Platelet Volume 10.8 fL (6.9-10.8) Neutrophils (%) (Auto) 67.2 % (37.0-80.0) Lymphocytes (%) (Auto) 22.7 % (10.0-50.0) Monocytes (%) (Auto) 8.2 % (0.0-12.0) Eosinophils (%) (Auto) 1.6 % (0.0-7.0) Basophils (%) (Auto) 0.3 % (0.0-2.0) Neutrophils # (Auto) 3.4 10 ^3/uL (1.6-8.6) Lymphocytes # (Auto) 1.1 10 ^3/uL (0.4-5.4) Monocytes # (Auto) 0.4 10 ^3/uL (0-1.3) Eosinophils # (Auto) 0.1 10 ^3/uL (0-0.8) Basophils # (Auto) 0 10 ^3/uL (0-0.2) Nucleated Red Blood Cells 0.1 % Sodium Level 141 mmol/L (136-145) Potassium Level 3.7 mmol/L (3.5-5.1) Chloride Level 108 mmol/L (98-107) Carbon Dioxide Level 25 mmol/L (20-31) Anion Gap 8 (5-15) Blood Urea Nitrogen 14 mg/dL (9-23) Creatinine 0.78 mg/dL (0.550-1.02) Glomerular Filtration Rate Calc 84 mL/min (>90) BUN/Creatinine Ratio 17.9 (10.0-20.0) Serum Glucose 286 mg/dL (74-106) Calcium Level 9.5 mg/dL (8.7-10.4) Phosphorus Level 3.6 mg/dL (2.4-5.1) Magnesium Level 2.1 mg/dL (1.6-2.6) Total Bilirubin 0.7 mg/dL (0.2-1.0) Aspartate Amino Transferase (AST) 14 U/L (13-40) Alanine Aminotransferase (ALT) 23 U/L (7-40) Alkaline Phosphatase 119 U/L (46-116) Total Protein 6.8 g/dL (5.7-8.2) Albumin 3.7 g/dL (3.2-4.8) Triglycerides Level 157 mg/dL (< 150) Cholesterol Level 199 mg/dL (< 200) LDL Cholesterol 121 mg/dL (< 100) HDL Cholesterol 55 mg/dL (40-59) Thyroid Stimulating Hormone (TSH) 0.80 uIU/mL (0.55-4.78) Hemoglobin A1c 10.7 % A1C (<5.7) Urine Color Light-yellow (Yellow) Urine Clarity Clear (Clear) Urine pH 5.0 (5.0-9.0) Urine Specific [place] 1.032 (1.001-1.035) Urine Protein Negative (Negative) Urine Ketones 1+ (Negative) Urine Blood Negative /uL (Negative) Urine Nitrite Negative (Negative) Urine Bilirubin Negative (Negative) Urine Urobilinogen Normal mg/dL (Negative) Urine Leukocyte Esterase Negative /uL (Negative) Urine RBC 4 /hpf (0 - 4) Urine WBC 1 /hpf (0 - 5) Urine Squamous Epithelial Cells Few /hpf (<5) Urine Bacteria None seen /hpf (None Seen) Urine Glucose 4+ mg/dL (Normal) Other Laboratory Tests 03/08/24 05:54 Brief Hx & Hospital Course: 63-year-old female presents for evaluation of generalized weakness. Patient reports a two day history of generalized weakness. Yesterday patient noted her blood sugar being elevated greater than 400. She reports being compliant with her diabetic medication. Reports occasional chills. A1c 10.7, patient was treated with Rocephin, will be discharged to resume Metformin and start Jardiance and Lipitor. Patient needs to have labs checked in 3-5 days to monitor renal function and LFTs with [facility] Supervisor on possible side effects of Jardiance. If UTI persists or worsens, will need to discontinue Jardiance and transition to Insulin. 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 Discharge Statement: "Patient was advised to return to the ER or call 911 if any headaches, dizziness, shortness of breath, chest pain, abdominal pain, bleeding, fevers, or worsening of medical condition. Patient was counseled about treatment plan, medications, possible side effects, patientverbalized understanding. All questions were answered to the best of my ability. This discharge took greater then 30 minutes in planning, reviewing documentation, counseling the patient, and discussing with other team members." ASSESSMENT ASSESSMENT Assessment Date of Service: Mar 08, 2024 Billing Provider: ROM ALEXANDRE MD Common Visit Codes: [id number] DISCH DAY >30min ROM ALEXANDRE MD Mar 08, 2024 09:03
[2024-03-08 09:29] VITALS: BP 147/90; PULSE 92; RESP 18; TEMP 98.2; O2SAT 94
== END 2024-03-08 11:35 | disposition home or self-care (01) | DRG 690 ==
LOC: ER 11:43 → OVERFLOW 21:25 → WEST WING 03-07 18:00
PROVIDERS: ADMIT Nurse Practitioner; ATTEND Internal Medicine
DX: N30.00 Acute cystitis without hematuria (principal); E11.65 Type 2 diabetes mellitus with hyperglycemia; E66.01 Morbid (severe) obesity due to excess calories; E78.5 Hyperlipidemia, unspecified; Z79.4 Long term (current) use of insulin; Z83.3 Family history of diabetes mellitus; Z68.39 Body mass index [BMI] 39.0-39.9, adult
CPT/HCPCS: 36415; 80048; 80053; 80061; 81001; 82306; 82962; 83036; 83735; 84100; 84443; 85025; 93005; G0378; J1815